=== PATIENT | male | born 1940 | race Caucasian/White ===

== ENCOUNTER 2017-11-28 13:39 | Emergency (ER) | payer OTHER ==
[2017-11-28] MEDS ORDERED: NA CHLORIDE 0.9% 1,000 ML ONE (14:10)
[2017-11-28 14:38] LABS: Absolute Lymphocytes (CBC) 1.7 K/uL (0.7-4.9); Absolute Monocytes 2.1 K/uL (0.1-1.3); Absolute Neutrophil 6.6 K/uL (1.8-8.0); Basophils % 0.4 % (0-1.3); Eosinophils % 0.8 % (0-4.4); Hematocrit 47.3 % (39.6-49.0); MCH 30.8 pg (27.0-35.0); MCV 90.1 fL (80-100); MPV 8.2 fL (7.6-11.3); Monocytes % 20.1 % (3.3-12.3); RBC Red Blood Cell Count 5.25 M/uL (4.33-5.43)
[2017-11-28 14:44] LABS: Potassium 3.8 mEq/L (3.6-5.0)
--- NOTE | 2017-11-28 14:53 | RAD REPORT ---
EXAM DESCRIPTION: RAD - Chest Pa And Lat (2 Views) - 11/28/2017 2:37 pm CLINICAL HISTORY: Cough, chest pain COMPARISON: December 2016 chest film, April 2016 CT chest TECHNIQUE: PA and lateral views of the chest were obtained. FINDINGS: The lungs are clear of a focal consolidation, new mass or acute failure finding. Approxim ately 10-12 millimeter nodule seen in the lateral mid left lung field matches a nodule of similar siz e on the 2016 study. No evidence for growth. This long stability would indicate benign etiology. Yadira ent has chronic interstitial lung disease matching prior imaging. Heart size is normal and central vasculature is within normal limits. No pleural effusion or pneumot horax seen. No acute bony finding noted. No aortic abnormality. IMPRESSION: Chronic fibrotic lung change with no suspicious mass, failure or infiltrate. As detailed above, no suspicious change from prior imaging.
--- NOTE | 2017-11-28 14:55 | RAD REPORT ---
EXAM DESCRIPTION: CT - Head Brain Wo Cont - 11/28/2017 2:43 pm CLINICAL HISTORY: Dizziness, left-sided ear pain and discomfort COMPARISON: None. TECHNIQUE: Axial 5 mm thick images of the head were obtained without IV contrast. All CT scans are performed using dose optimization technique as appropriate and may include automated exposure control or mA/KV adjustment according to patient size. FINDINGS: No intracranial hemorrhage, mass, edema or shift of mid-line structures. No acute cortical based infarction. Moderate atrophy and chronic ischemic changes are present. Ventricular size is in proportion. No abnormal extra-axial fluid collections. Arterial and physiologic calcifications are pr esent. Mastoid air cells and visualized portions of the paranasal sinuses are clear. No acute bony findings. IMPRESSION: Moderate atrophy and chronic ischemic change. No acute intracranial finding.
[2017-11-28 15:28] LABS: Blood Morphology Comment NOT SEEN (NOT SEEN); Platelet Estimate ADEQ; Urine White Blood Cell Casts OK
--- NOTE | 2017-11-28 15:43 | RAD REPORT ---
EXAM DESCRIPTION: CT - Chest For Pe Angio - 11/28/2017 3:29 pm CLINICAL HISTORY: Chest pain, shortness of breath COMPARISON: Chest exam same date, CT study April 2016 TECHNIQUE: Dynamically enhanced 3 mm thick images of the chest were obtained during administration o f approximately 150mL Isovue 370 IV contrast. Coronal and oblique reconstruction images were generate d and reviewed. Exam utilizes a protocol to evaluate the pulmonary arterial tree. All CT scans are performed using dose optimization technique as appropriate and may include automated exposure control or mA/KV adjustment according to patient size. FINDINGS: No pulmonary emboli are identified. Far peripheral branch assessment is limited by motion. The aorta as imaged shows no acute or suspicious finding. No pericardial thickening or effusion. No acute infiltrate or suspicious mass. A 12 mm noncalcified nodule is seen abutting the pleura later al inferior aspect of the left upper lobe (image 35/87). This is unchanged from April 2016. No ple ural effusion or pleural thickening. No mediastinal or hilar suspicious masses. No chest wall masses or abnormal axillary lymphadenopathy. IMPRESSION: No pulmonary embolism identified. Chronic chest findings are detailed above and seen as stable comparing back to April 2016. No other significant or suspicious findings.
[2017-11-28 16:24] LABS: Urine Blood NEGATIVE (NEG); Urine Glucose NEGATIVE (NEG); Urine Protein TRACE (NEG); Urine Specific Gravity 1.015 (1.005-1.030)
--- NOTE | 2017-11-28 16:28 | EDPHYS ---
Physician Documentation [facility] Name: Wendy Phillips Age: 77 yrs Sex: Male : 1940 Arrival Date: 11/28/2017 Time: 13:41 Bed 3 Private MD: Trinidad Yarbrough F ED Physician Guillermo Valencia HPI: 11/28 14:27 This 77 yrs old Male presents to ER via Ambulatory with complaints of rn Dizziness, Pain on Breathing. 14:27 The patient presents with feeling off balance. Onset: The symptoms/episode rn began/occurred 1 week(s) ago. Modifying factors: The symptoms are alleviated by nothing, the symptoms are aggravated by nothing. Severity of symptoms: At their worst the symptoms were mild in the emergency department the symptoms are unchanged. 14:28 The patient has experienced similar episodes in the past. Reports here for 2 reasons, 1 rn week of dizziness, feels off balance, has had this happen before and tends to be wax impaction of ears. No focal neurological complaint. Also reports mild cough with pain in upper chest near neck, no sob worse than baseline COPD. Otherwise feels ok. . Historical: - Allergies: 13:50 No Known Allergies; aj - Home Meds: 13:50 ProAir HFA inhalation [Active]; aj - PMHx: 13:50 COPD; aj - PSHx: 13:50 None; aj - Immunization history:: Adult Immunizations up to date. - Social history:: Smoking status: Patient uses tobacco products, smokes one pack cigarettes per day. - Ebola Screening: : Patient negative for fever greater than or equal to 101.5 degrees Fahrenheit, and additional compatible Ebola Virus Disease symptoms Patient denies exposure to infectious person Patient denies travel to an Ebola-affected area in the 21 days before illness onset No symptoms or risks identified at this time. - Family history:: not pertinent. - Hospitalizations: : No recent hospitalization is reported. ROS: 14:28 Constitutional: Negative for fever, chills, and weight loss, Eyes: Negative for injury, rn pain, redness, and discharge, Cardiovascular: Negative for chest pain, palpitations, and edema, Respiratory: Negative for wheezing Abdomen/GI: Negative for abdominal pain, nausea, vomiting, diarrhea, and constipation, Back: Negative for injury and pain, MS/Extremity: Negative for injury and deformity, Skin: Negative for injury, rash, and discoloration, Neuro: Negative for headache, weakness, numbness, tingling, and seizure. Exam: 14:28 Constitutional: This is a well developed, well nourished patient who is awake, alert, rn and in no acute distress. Head/Face: Normocephalic, atraumatic. Eyes: Pupils equal round and reactive to light, extra-ocular motions intact. Lids and lashes normal. Conjunctiva and sclera are non-icteric and not injected. Cornea within normal limits. Periorbital areas with no swelling, redness, or edema. ENT: Nares patent. No nasal discharge, no septal abnormalities noted.Oropharynx with no redness, swelling, or masses, exudates, or evidence of obstruction, uvula midline. Mucous membranes moist. + bilateral cerumen impaction. Neck: Trachea midline, no thyromegaly or masses palpated, and no cervical lymphadenopathy. Supple, full range of motion without nuchal rigidity, or vertebral point tenderness. No Meningismus. Cardiovascular: tachycardic, irregular, no murmur Respiratory: Lungs have equal breath sounds bilaterally, clear to auscultation and percussion. No rales, rhonchi or wheezes noted. No increased work of breathing, no retractions or nasal flaring. Abdomen/GI: Soft, non-tender, with normal bowel sounds. No distension or tympany. No guarding or rebound. No evidence of tenderness throughout. Skin: Warm, dry, no evidence of cellulitis. MS/ Extremity: Pulses equal, no cyanosis. Neurovascular intact. Full, normal range of motion. Equal circumference. Neuro: Awake and alert, GCS 15, oriented to person, place, time, and situation. Cranial nerves II-XII grossly intact. Motor strength 5/5 in all extremities. Sensory grossly intact. Vital Signs: 13:50 BP 140 / 82; Pulse 107; Resp 16; Temp 98.9; Pulse Ox 95% on R/A; Weight 108.86 kg; aj Height 6 ft. 0 in. (182.88 cm); 15:00 BP 138 / 78; Pulse 88; Resp 15; Pulse Ox 100% on R/A; hb 13:50 Body Mass Index 32.55 (108.86 kg, 182.88 cm) aj MDM: 13:53 Patient medically screened. rn 16:26 Differential diagnosis: generalized weakness, hyperventilation, hypovolemia, idiopathic rn dizziness, vertigo, COPD, pleurisy, mass, PE, pneumonia. Data reviewed: vital signs, nurses notes, lab test result(s), EKG, radiologic studies, CT scan, plain films, and as a result, I will discharge patient. Counseling: I had a detailed discussion with the patient and/or guardian regarding: the historical points, exam findings, and any diagnostic results supporting the discharge/admit diagnosis, lab results, radiology results, the need for outpatient follow up, to return to the emergency department if symptoms worsen or persist or if there are any questions or concerns that arise at home. Response to treatment: the patient's symptoms have mildly improved after treatment, and as a result, I will discharge patient. Special discussion: Based on the patient's history, exam, and Dx evaluation, there is no indication for emergent intervention or inpatient Tx. It is understood by the patient/guardian that if the Sx's persist or worsen they need to return immediately for re-evaluation. I discussed with the patient/guardian in detail that at this point there is no indication for admission to the hospital. It is understood, however, that if the symptoms persist or worsen the patient needs to return immediately for re-evaluation. 16:26 ED course: CT chest neg, labs unremarkable other than d-dimer, ear irrigated and rn cerumen impactions removed.. 11/28 14:04 Order name: CBC with Diff; Complete Time: 15:47 rn 11/28 14:04 Order name: Basic Metabolic Panel; Complete Time: 14:58 rn 11/28 14:04 Order name: Troponin (emerg Dept Use Only); Complete Time: 14:58 rn 11/28 14:04 Order name: D-Dimer; Complete Time: 15:47 rn 11/28 14:04 Order name: Strep; Complete Time: 14:58 rn 11/28 14:44 Order name: CBC Smear Scan; Complete Time: 15:47 EDMS 11/28 14:04 Order name: IV Start; Complete Time: 14:26 rn 11/28 14:04 Order name: XRAY Chest Pa And Lat (2 Views); Complete Time: 14:58 rn 11/28 14:04 Order name: EKG; Complete Time: 14:04 rn 11/28 14:28 Order name: CT Head Brain wo Cont; Complete Time: 14:58 rn 11/28 14:47 Order name: Throat Culture EDAK 11/28 15:07 Order name: CT Chest For PE Angio; Complete Time: 15:47 rn 11/28 16:20 Order name: Urine Dipstick--Ancillary (enter results) em1 11/28 14:04 Order name: EKG - Nurse/Tech; Complete Time: 14:26 rn 11/28 15:55 Order name: Urine Dipstick-Ancillary (obtain specimen); Complete Time: 16:19 rn Administered Medications: 14:26 Drug: NS 0.9% 500 ml Route: IV; Rate: bolus; Site: right antecubital; hb 15:15 Follow up: Response: No adverse reaction; IV Status: Completed infusion hb Disposition: 11/28/17 16:28 Discharged to Home. Impression: Chest pain, unspecified, Impacted cerumen, left ear, Impacted cerumen, right ear. - Condition is Stable. - Discharge Instructions: Cerumen Impaction, Nonspecific Chest Pain, Pleurisy. - Medication Reconciliation Form, Thank You Letter, Antibiotic Education, Prescription Opioid Use form. - Follow up: Trinidad Yarbrough MD; When: As needed; Reason: Recheck today's complaints, Re-evaluation by your physician. - Problem is new. - Symptoms have improved. Signatures: Dispatcher [employer] [facility] Vivian Esquivel RN RN aj Nieto, Roman, MD MD rn Baxter, Heather, RN RN hb Corrections: (The following items were deleted from the chart) 17:07 16:28 11/28/2017 16:28 Discharged to Home. Impression: Chest pain, unspecified; hb Impacted cerumen, left ear; Impacted cerumen, right ear. Condition is Stable. Forms are Medication Reconciliation Form, Thank You Letter, Antibiotic Education, Prescription Opioid Use. Follow up: Trinidad Yarbrough; When: As needed; Reason: Recheck today's complaints, Re-evaluation by your physician. Problem is new. Symptoms have improved. rn
--- NOTE | 2017-11-28 16:28 | ER ---
Nurse's Notes [facility] Name: Wendy Phillips Age: 77 yrs Sex: Male : 1940 Arrival Date: 11/28/2017 Time: 13:41 Bed 3 Private MD: Trinidad Yarbrough F Diagnosis: Chest pain, unspecified;Impacted cerumen, left ear;Impacted cerumen, right ear Presentation: 11/28 13:48 Presenting complaint: Patient states: Woke up this AM with pain to lower anterior neck aj when breathing and left ear discomfort. Patient reports dizziness when moving. Transition of care: patient was not received from another setting of care. Onset of symptoms was November 28, 2017. Risk Assessment: Do you want to hurt yourself or someone else? Patient reports no desire to harm self or others. Care prior to arrival: None. 13:48 Method Of Arrival: Ambulatory aj 13:48 Acuity: DIOGENES 3 aj Triage Assessment: 13:50 General: Appears in no apparent distress. comfortable, Behavior is calm, cooperative, aj appropriate for age. Pain: Complains of pain in right aspect of thyroid, left aspect of thyroid and suprasternal notch. EENT: Reports pain in left ear. Neuro: Level of Consciousness is awake, alert, obeys commands, Oriented to person, place, time, situation, Appropriate for age. Respiratory: Airway is patent Respiratory effort is even, unlabored, Respiratory pattern is regular, symmetrical. Derm: Skin is intact, is healthy with good turgor, Skin is pink, warm \T\ dry. normal. Historical: - Allergies: 13:50 No Known Allergies; aj - Home Meds: 13:50 ProAir HFA inhalation [Active]; aj - PMHx: 13:50 COPD; aj - PSHx: 13:50 None; aj - Immunization history:: Adult Immunizations up to date. - Social history:: Smoking status: Patient uses tobacco products, smokes one pack cigarettes per day. - Ebola Screening: : Patient negative for fever greater than or equal to 101.5 degrees Fahrenheit, and additional compatible Ebola Virus Disease symptoms Patient denies exposure to infectious person Patient denies travel to an Ebola-affected area in the 21 days before illness onset No symptoms or risks identified at this time. - Family history:: not pertinent. - Hospitalizations: : No recent hospitalization is reported. Screenin:26 Abuse screen: Denies threats or abuse. Denies injuries from another. Nutritional hb screening: No deficits noted. Tuberculosis screening: No symptoms or risk factors identified. Fall Risk None identified. Assessment: 14:00 General: Appears in no apparent distress. Behavior is calm, cooperative. Pain: Pain hb currently is 3 out of 10 on a pain scale. Neuro: Level of Consciousness is awake, alert, obeys commands, Oriented to person, place, time, situation. Cardiovascular: Heart tones S1 S2 present Capillary refill < 3 seconds Patient's skin is warm and dry. Respiratory: Airway is patent Trachea midline Respiratory effort is even, unlabored, Respiratory pattern is regular, symmetrical, Breath sounds are clear bilaterally. GI: No signs and/or symptoms were reported involving the gastrointestinal system. : No signs and/or symptoms were reported regarding the genitourinary system. EENT: Reports decreased hearing. Derm: Skin is intact, is healthy with good turgor, Skin is pink, warm \T\ dry. Musculoskeletal: No signs and/or symptoms reported regarding the musculoskeletal system. 15:00 Reassessment: Patient appears in no apparent distress at this time. No changes from hb previously documented assessment. Patient and/or family updated on plan of care and expected duration. Pain level reassessed. Patient is alert, oriented x 3, equal unlabored respirations, skin warm/dry/pink. 16:00 Reassessment: Patient appears in no apparent distress at this time. No changes from hb previously documented assessment. Patient and/or family updated on plan of care and expected duration. Pain level reassessed. Patient is alert, oriented x 3, equal unlabored respirations, skin warm/dry/pink. 16:15 Reassessment: Bilateral ears irrigated with sterile water and H2O2. Pt tolerated well. hb at bedside. VSS. Vital Signs: 13:50 BP 140 / 82; Pulse 107; Resp 16; Temp 98.9; Pulse Ox 95% on R/A; Weight 108.86 kg; aj Height 6 ft. 0 in. (182.88 cm); 15:00 BP 138 / 78; Pulse 88; Resp 15; Pulse Ox 100% on R/A; hb 13:50 Body Mass Index 32.55 (108.86 kg, 182.88 cm) aj ED Course: 13:41 Patient arrived in ED. as 13:42 Trinidad Yarbrough MD is Private Physician. as 13:50 Triage completed. aj 13:50 Arm band placed on left wrist. Patient placed in an exam room. aj 13:53 Guillermo Valencia MD is Attending Physician. rn 14:16 EKG done, by ep tech. reviewed by Guillermo Valencia MD. sm3 14:20 Inserted saline lock: 20 gauge in right antecubital area, using aseptic technique. hb Blood collected. 14:26 Patient has correct armband on for positive identification. Placed in gown. Bed in low hb position. Call light in reach. Side rails up X 1. 14:32 Elena Nassar RN is Primary Nurse. hb 14:36 XRAY Chest Pa And Lat (2 Views) In Process Unspecified. EDMS 14:41 CT completed. Patient tolerated procedure well. Patient moved to CT via wheelchair. vr Patient moved back from CT. 14:43 CT Head Brain wo Cont In Process Unspecified. EDMS 15:[address] nj 15:29 CT completed. Patient tolerated procedure well. Patient moved back from CT. nj 15:29 CT Chest For PE Angio In Process Unspecified. EDMS 16:28 Trinidad Yarbrough MD is Referral Physician. rn 17:06 No provider procedures requiring assistance completed. IV discontinued, intact, hb bleeding controlled, No redness/swelling at site. Pressure dressing applied. Administered Medications: 14:26 Drug: NS 0.9% 500 ml Route: IV; Rate: bolus; Site: right antecubital; hb 15:15 Follow up: Response: No adverse reaction; IV Status: Completed infusion hb Outcome: 16:28 Discharge ordered by . rn 17:06 Discharged to home ambulatory, with significant other. hb 17:06 Condition: stable 17:06 Discharge instructions given to patient, significant other, Instructed on discharge instructions, follow up and referral plans. no driving heavy equipment, Demonstrated understanding of instructions, follow-up care, medications. 17:08 Patient left the ED. hb Signatures: Dispatcher [employer] EDMS Vivian Esquivel RN RN aj Martinez, Amelia as Guillermo Valencia MD MD rn Davis, Victoria vr Baxter, Heather, RN RN hb Jordan, Nathan nj Montes, Shakira [facility]
[2017-11-28 17:32] VITALS: TEMP 98.9
[2017-11-28 17:33] VITALS: BP 138/78; O2SAT 100
--- NOTE | 2017-11-28 22:40 | EKG ---
Test Date: 2017-11-28 Test Time: 14:11:46 Drapery Rod Assembler: JOSELUIS MEASUREMENT RESULTS: Intervals: Rate: 103 DE: 134 QRSD: 126 QT: 362 QTc: 474 [place]: P: 53 DE: 134 QRS: -68 T: 24 INTERPRETIVE STATEMENTS: Sinus tachycardia with premature atrial complexes Right bundle branch block Left anterior fascicular block Bifascicular block Abnormal ECG Compared to ECG 01/16/2017 19:47:29 Atrial premature complex(es) now present Sinus rhythm no longer present Electronically Signed On 11-28-17 22:40:23 CDT by Blanco Barber
== END 2017-11-28 17:07 | disposition home or self-care (01) ==
LOC: ER 13:39
DX: H61.23 Impacted cerumen, bilateral (principal); R07.9 Chest pain, unspecified; J44.9 Chronic obstructive pulmonary disease, unspecified; F17.210 Nicotine dependence, cigarettes, uncomplicated
CPT/HCPCS: 36415; 70450; 71046; 71275; 80048; 81003; 84484; 85025; 85379; 87070; 87081; 93005; J7030; Q9967; 96360; 99284

== ENCOUNTER 2018-11-24 21:23 | Emergency (ER) | payer OTHER ==
[2018-11-24] MEDS ORDERED: ALBUTEROL 2.5 MG/3 ML NEB SOL ONE (22:43)
[2018-11-24] MEDS ORDERED: predniSONE 20 MG TAB ONE (22:44)
[2018-11-24] MEDS ORDERED: IPRATROPIUM BROM 0.5MG/2.5ML ONE (22:44)
[2018-11-24 23:08] LABS: Absolute Lymphocytes (CBC) 2.2 K/uL (0.7-4.9); Absolute Monocytes 1.2 K/uL (0.1-1.3); Absolute Neutrophil 5.9 K/uL (1.8-8.0); Basophils % 0.6 % (0-1.3); Eosinophils % 3.8 % (0-4.4); Hematocrit 50.1 % (39.6-49.0); Lymphocytes % 22.3 % (15.3-44.8); MPV 8.4 fL (7.6-11.3); Monocytes % 12.4 % (3.3-12.3); RBC Red Blood Cell Count 5.46 M/uL (4.33-5.43)
--- NOTE | 2018-11-25 00:31 | ER ---
Nurse's Notes [facility] Name: Wendy Phillips Age: 78 yrs Sex: Male : 1940 Arrival Date: 11/24/2018 Time: 21:29 Bed 30 Private MD: Trinidad Yarbrough F Diagnosis: Chronic obstructive pulmonary disease, unspecified Presentation: 11/24 21:45 Presenting complaint: Patient states: started earlier this week, accompanied by rv cough with whitish phlegm. takes albuterol puff every 4 hours as needed. did not get better. complains of SOB after doing some yard work. patient is diagnosed COPD, and smokes 3/4 packs a day. Transition of care: patient was not received from another setting of care. Onset of symptoms was November 16, 2018 at 08:00. Risk Assessment: Do you want to hurt yourself or someone else? Patient reports no desire to harm self or others. Initial Sepsis Screen: Does the patient meet any 2 criteria? No. Patient's initial sepsis screen is negative. Does the patient have a suspected source of infection? No. Patient's initial sepsis screen is negative. Care prior to arrival: None. 21:45 Method Of Arrival: Ambulatory rv 21:45 Acuity: DIOGENES 3 rv Triage Assessment: 21:49 General: Appears in no apparent distress. comfortable, Behavior is calm, cooperative. rv Pain: Denies pain. EENT: No signs and/or symptoms were reported regarding the EENT system. Neuro: Level of Consciousness is awake. Cardiovascular: Patient's skin is warm and dry. Respiratory: Reports shortness of breath on exertion Airway is patent Breath sounds with wheezes Onset: The symptoms/episode began/occurred EARLIER THIS WEEK, the patient has mild shortness of breath. GI: No signs and/or symptoms were reported involving the gastrointestinal system. : No signs and/or symptoms were reported regarding the genitourinary system. Derm: Skin is intact. Musculoskeletal: No signs and/or symptoms reported regarding the musculoskeletal system. Historical: - Allergies: 21:48 No Known Allergies; rv - Home Meds: 21:48 ProAir HFA inhalation [Active]; rv - PMHx: 21:48 COPD; rv - PSHx: 21:48 None; rv - Immunization history:: Adult Immunizations up to date. - Social history:: Smoking status: Patient uses tobacco products, 3/4 PPD. - Ebola Screening: : No symptoms or risks identified at this time. Screenin:51 Abuse screen: Denies threats or abuse. Denies injuries from another. Nutritional rv screening: No deficits noted. Tuberculosis screening: No symptoms or risk factors identified. Fall Risk None identified. Assessment: 21:51 Respiratory: Respiratory effort is even. rv 21:52 Cardiovascular: Rhythm is regular. rv Vital Signs: 21:44 BP 163 / 93; Pulse 93; Resp 17; Temp 99.5; Pulse Ox 93% on R/A; Weight 113.4 kg; Height rv 6 ft. (182.88 cm); Pain 0/10; 23:00 BP 131 / 86; Pulse 87; Resp 18; Temp 99.5; Pulse Ox 96% ; rv 23:30 BP 119 / 73; Pulse 83; Resp 18; Pulse Ox 95% on R/A; rv 11/25 00:00 BP 133 / 82; Pulse 83; Resp 18; Pulse Ox 95% on R/A; rv 00:30 BP 130 / 84; Pulse 89; Resp 18; Temp 99.4; Pulse Ox 95% on R/A; rv 11/24 21:44 Body Mass Index 33.91 (113.40 kg, 182.88 cm) rv ED Course: 11/24 21:29 Patient arrived in ED. es 21:29 Trinidad Yarbrough MD is Private Physician. es 21:36 Sandro Francois, JUAN M is Primary Nurse. rv 21:47 Triage completed. rv 21:51 Patient has correct armband on for positive identification. Bed in low position. Call rv light in reach. Side rails up X 1. Adult w/ patient. Pulse ox on. NIBP on. 21:51 Arm band placed on right wrist. Patient placed in an exam room, on a stretcher, on rv pulse oximetry, Patient notified of wait time. 22:17 Isac Nevarez NP is PHCP. pm1 22:17 George Warner MD is Attending Physician. pm1 23:00 Inserted saline lock: 20 gauge in right antecubital area, using aseptic technique. rv Blood collected. 23:13 Chest Pa And Lat (2 Views) XRAY In Process Unspecified. EDMS 11/25 00:57 No provider procedures requiring assistance completed. IV discontinued, intact, rv bleeding controlled, No redness/swelling at site. Pressure dressing applied. Administered Medications: 11/24 22:30 Drug: Albuterol 2.5 mg Route: Inhalation; rv 11/25 00:55 Follow up: Response: Marked relief of symptoms rv 11/24 22:30 Drug: AtroVENT Aerosol 0.5 mg Route: Inhalation; rv 11/25 00:55 Follow up: Response: Marked relief of symptoms rv 11/24 22:30 Drug: predniSONE 60 mg Route: PO; rv 11/25 00:55 Follow up: Response: Marked relief of symptoms rv 00:45 Drug: Rocephin 1 grams Route: IV; Rate: calculated rate; Site: right antecubital; rv 00:54 Follow up: IV Status: Completed infusion rv Outcome: 00:31 Discharge ordered by . pm1 00:57 Discharged to home ambulatory. rv 00:57 Condition: good 00:57 Discharge instructions given to patient, Instructed on discharge instructions, follow up and referral plans. medication usage, Demonstrated understanding of instructions, follow-up care, medications, Prescriptions given X 3. 00:57 Patient left the ED. rv Signatures: Dispatcher [employer] Maria Teresa Malave Patrick, NP DAM WORKER pm1 Sandro Francois RN RN rv
--- NOTE | 2018-11-25 00:31 | EDPHYS ---
Physician Documentation [facility] Name: Wendy Phillips Age: 78 yrs Sex: Male : 1940 Arrival Date: 11/24/2018 Time: 21:29 Bed 30 Private MD: Trinidad Yarbrough F ED Physician George Warner HPI: 11/24 22:56 This 78 yrs old Male presents to ER via Ambulatory with complaints of pm1 Breathing Difficulty. 22:56 The patient has shortness of breath at rest. Onset: The symptoms/episode began/occurred pm1 1 week(s) ago. Duration: The symptoms are continuous. The patient's shortness of breath is aggravated by allergies, is alleviated by inhaler. Associated signs and symptoms: Pertinent positives: productive cough, Pertinent negatives: chest pain, fever, nausea, vomiting. Severity of symptoms: in the emergency department the symptoms are worse Pain is currently a 0 / 10. The patient has not experienced similar symptoms in the past. The patient has not recently seen a physician. Historical: - Allergies: 21:48 No Known Allergies; rv - Home Meds: 21:48 ProAir HFA inhalation [Active]; rv - PMHx: 21:48 COPD; rv - PSHx: 21:48 None; rv - Immunization history:: Adult Immunizations up to date. - Social history:: Smoking status: Patient uses tobacco products, 3/4 PPD. - Ebola Screening: : No symptoms or risks identified at this time. ROS: 22:56 Constitutional: Negative for fever, chills, and weight loss, Eyes: Negative for injury, pm1 pain, redness, and discharge, ENT: Negative for injury, pain, and discharge, Neck: Negative for injury, pain, and swelling, Cardiovascular: Negative for chest pain, palpitations, and edema. 22:56 Abdomen/GI: Negative for abdominal pain, nausea, vomiting, diarrhea, and constipation, Back: Negative for injury and pain, : Negative for injury, bleeding, discharge, and swelling, MS/Extremity: Negative for injury and deformity, Skin: Negative for injury, rash, and discoloration, Neuro: Negative for headache, weakness, numbness, tingling, and seizure. 22:56 Respiratory: Positive for cough, baseline sputum color, no change, shortness of breath, at rest. Exam: 22:56 Constitutional: This is a well developed, well nourished patient who is awake, alert, pm1 and in no acute distress. Head/Face: Normocephalic, atraumatic. Eyes: Pupils equal round and reactive to light, extra-ocular motions intact. Lids and lashes normal. Conjunctiva and sclera are non-icteric and not injected. Cornea within normal limits. Periorbital areas with no swelling, redness, or edema. ENT: Nares patent. No nasal discharge, no septal abnormalities noted. Tympanic membranes are normal and external auditory canals are clear. Oropharynx with no redness, swelling, or masses, exudates, or evidence of obstruction, uvula midline. Mucous membranes moist. Neck: Trachea midline, no thyromegaly or masses palpated, and no cervical lymphadenopathy. Supple, full range of motion without nuchal rigidity, or vertebral point tenderness. No Meningismus. Chest/axilla: Normal chest wall appearance and motion. Nontender with no deformity. No lesions are appreciated. Cardiovascular: Regular rate and rhythm with a normal S1 and S2. No gallops, murmurs, or rubs. Normal PMI, no JVD. No pulse deficits. 22:56 Abdomen/GI: Soft, non-tender, with normal bowel sounds. No distension or tympany. No guarding or rebound. No evidence of tenderness throughout. Back: No spinal tenderness. No costovertebral tenderness. Full range of motion. Skin: Warm, dry with normal turgor. Normal color with no rashes, no lesions, and no evidence of cellulitis. MS/ Extremity: Pulses equal, no cyanosis. Neurovascular intact. Full, normal range of motion. 22:56 Respiratory: the patient does not display signs of respiratory distress, Respirations: normal, Breath sounds: wheezing: that is mild, is heard in the left posterior upper lobe. 22:56 Neuro: Orientation: is normal, Motor: is normal, moves all fours. Vital Signs: 21:44 BP 163 / 93; Pulse 93; Resp 17; Temp 99.5; Pulse Ox 93% on R/A; Weight 113.4 kg; Height rv 6 ft. (182.88 cm); Pain 0/10; 23:00 BP 131 / 86; Pulse 87; Resp 18; Temp 99.5; Pulse Ox 96% ; rv 23:30 BP 119 / 73; Pulse 83; Resp 18; Pulse Ox 95% on R/A; rv 0603 00:00 BP 133 / 82; Pulse 83; Resp 18; Pulse Ox 95% on R/A; rv 00:30 BP 130 / 84; Pulse 89; Resp 18; Temp 99.4; Pulse Ox 95% on R/A; rv 11/24 21:44 Body Mass Index 33.91 (113.40 kg, 182.88 cm) rv MDM: 11/24 22:17 Patient medically screened. pm1 11/25 00:30 Data reviewed: vital signs. Data interpreted: Pulse oximetry: on room air is 93 %. pm1 Interpretation: normal. Counseling: I had a detailed discussion with the patient and/or guardian regarding: the historical points, exam findings, and any diagnostic results supporting the discharge/admit diagnosis, lab results, radiology results, the need for outpatient follow up, to return to the emergency department if symptoms worsen or persist or if there are any questions or concerns that arise at home. 11/24 22:24 Order name: Flu pm1 11/24 22:24 Order name: CBC with Diff pm1 11/24 22:24 Order name: BMP pm1 11/24 22:26 Order name: Influenza Screen (A ; Complete Time: 00:23 EDMS 11/24 22:26 Order name: CBC with Automated Diff; Complete Time: 23:10 EDMS 06 22:26 Order name: Basic Metabolic Panel; Complete Time: 23:49 EDMS 11/24 22:24 Order name: Chest Pa And Lat (2 Views) XRAY pm1 Administered Medications: 11/24 22:30 Drug: Albuterol 2.5 mg Route: Inhalation; rv 11/25 00:55 Follow up: Response: Marked relief of symptoms rv 11/24 22:30 Drug: AtroVENT Aerosol 0.5 mg Route: Inhalation; rv 11/25 00:55 Follow up: Response: Marked relief of symptoms rv 11/24 22:30 Drug: predniSONE 60 mg Route: PO; rv 11/25 00:55 Follow up: Response: Marked relief of symptoms rv 00:45 Drug: Rocephin 1 grams Route: IV; Rate: calculated rate; Site: right antecubital; rv 00:54 Follow up: IV Status: Completed infusion rv Disposition: 01:27 Co-signature as Attending Physician, George Warner MD. claire Disposition: 11/25/18 00:31 Discharged to Home. Impression: Chronic obstructive pulmonary disease, unspecified. - Condition is Stable. - Discharge Instructions: Chronic Obstructive Pulmonary Disease, How to Use an Inhaler. - Prescriptions for Zithromax Z- Beni 250 mg Oral Tablet - take 1 tablet by ORAL route as directed for 5 days Day 1 - take two (2) tablets one time. Day 2, 3, 4 , 5 take one (1) tablet once daily.; 6 tablet. Medrol (Beni) 4 mg Oral Tablets, Dose Pack - take 1 tablet by ORAL route as directed - follow package instructions; 1 packet. Guaifenesin AC 10- 100 mg/5 mL Oral Liquid - take 10 milliliter by ORAL route every 4 hours As needed; 240 milliliter. - Medication Reconciliation Form, Thank You Letter, Antibiotic Education, Prescription Opioid Use form. - Follow up: Emergency Department; When: As needed; Reason: Worsening of condition. Follow up: Private Physician; When: 2 - 3 days; Reason: Recheck today's complaints, Continuance of care, Re-evaluation by your physician. - Problem is new. - Symptoms have improved. Signatures: Dispatcher [employer] EDMS George Warner MD MD pkl Isac Nevarez NP HELICOPTER OFFICER pm1 Sandro Francois RN RN rv Corrections: (The following items were deleted from the chart) 00:57 00:31 11/25/2018 00:31 Discharged to Home. Impression: Chronic obstructive pulmonary rv disease, unspecified. Condition is Stable. Forms are Medication Reconciliation Form, Thank You Letter, Antibiotic Education, Prescription Opioid Use. Follow up: Emergency Department; When: As needed; Reason: Worsening of condition. Follow up: Private Physician; When: 2 - 3 days; Reason: Recheck today's complaints, Continuance of care, Re-evaluation by your physician. Problem is new. Symptoms have improved. pm1
[2018-11-25] MEDS ORDERED: CEFTRIAXONE/SWI 1gm 1 GM/10 ML SYR ONE (00:52)
[2018-11-25 02:50] VITALS: O2SAT 95
[2018-11-25 02:52] VITALS: BP 130/84; TEMP 99.4
--- NOTE | 2018-11-25 08:34 | RAD REPORT ---
EXAM DESCRIPTION: RAD - Chest Pa And Lat (2 Views) - 11/24/2018 11:13 pm CLINICAL HISTORY: Cough;SOB Chest pain. COMPARISON: Chest Pa And Lat (2 Views) dated 11/28/2017; Chest Single View dated 01/16/2017; CHEST SING LE VIEW dated 04/08/2014; CHEST SINGLE VIEW dated 04/07/2014; Chest For Pe Angio dated 11/28/2017 TECHNIQUE: PA and lateral views of the chest were obtained. FINDINGS: The lungs are hyperexpanded compatible with COPD. Round nodule in the left mid lung latera lly appears stable over time. The heart is upper limit of normal in size. No fracture or aggressive b karolina process. IMPRESSION: COPD without acute process identified.
== END 2018-11-25 00:57 | disposition home or self-care (01) ==
LOC: ER 21:23
DX: J44.9 Chronic obstructive pulmonary disease, unspecified (principal); Z72.0 Tobacco use
CPT/HCPCS: 85025; 80048; 36415; 87804 ×2; 71046; 96374; 99284; J0696; J7512

== ENCOUNTER 2018-11-25 22:25 | Emergency (ER) | payer OTHER ==
[2018-11-26] MEDS ORDERED: ALBUTEROL 2.5 MG/3 ML NEB SOL ONE (00:12)
[2018-11-26] MEDS ORDERED: IPRATROPIUM BROM 0.5MG/2.5ML ONE (00:12)
--- NOTE | 2018-11-26 01:12 | EDPHYS ---
Physician Documentation [facility] Name: Wendy Phillips Age: 78 yrs Sex: Male : 1940 Arrival Date: 11/25/2018 Time: 22:27 Bed 7 Private MD: Trinidad Yarbrough F ED Physician George Warner HPI: 11/26 01:19 This 78 yrs old Male presents to ER via Wheelchair with complaints of kb Breathing Difficulty. 01:19 The patient has shortness of breath at rest. Onset: The symptoms/episode began/occurred kb 3 day(s) ago. Duration: The symptoms are intermittent. The patient's shortness of breath is aggravated by nothing, is alleviated by nothing. Associated signs and symptoms: The patient has no apparent associated signs or symptoms. Severity of symptoms: At their worst the symptoms were moderate in the emergency department the symptoms are unchanged. The patient has experienced similar episodes in the past. The patient has been recently seen at the [facility] Emergency Department, yesterday, for similar complaints labs were performed, X-rays were performed, was given a prescription for antibiotics. Pt reports he has had shortness of breath for about 3 days. Came in last night and was given a breathing treatment. "I felt better than I have in a long time after that." States he had labs and x-ray done that were all ok. Came tonight because he wasn't getting the same relief with the inhaler so he wants another neb treatment. Reports he thinks part of the feeling of shortness of breath is anxiety. Has seen Jeremy in the past. Was given a "powder inhaler," but didn't think it was necessary so he never started it. Pt smokes cigarettes daily. Educated on disease process of COPD. Historical: - Allergies: 11/25 22:54 No Known Allergies; tl2 - Home Meds: 22:54 ProAir HFA inhalation [Active]; tl2 - PMHx: 22:54 COPD; tl2 - Immunization history:: Adult Immunizations up to date. - Social history:: Smoking status: Patient uses tobacco products, smokes one pack cigarettes per day. - Ebola Screening: : No symptoms or risks identified at this time. ROS: 11/26 01:17 Constitutional: Negative for fever, chills, and weight loss, ENT: Negative for injury, kb pain, and discharge, Neck: Negative for injury, pain, and swelling, Cardiovascular: Negative for chest pain, palpitations, and edema, Abdomen/GI: Negative for abdominal pain, nausea, vomiting, diarrhea, and constipation, Back: Negative for injury and pain, MS/Extremity: Negative for injury and deformity, Skin: Negative for injury, rash, and discoloration, Neuro: Negative for headache, weakness, numbness, tingling, and seizure. Respiratory: Positive for shortness of breath, at rest. Negative for cough, dyspnea on exertion, hemoptysis, orthopnea, pleurisy, sputum production, wheezing. Exam: 01:19 Constitutional: This is a well developed, well nourished patient who is awake, alert, kb and in no acute distress. Head/Face: Normocephalic, atraumatic. Chest/axilla: Normal chest wall appearance and motion. Nontender with no deformity. No lesions are appreciated. Cardiovascular: Regular rate and rhythm with a normal S1 and S2. No gallops, murmurs, or rubs. Normal PMI, no JVD. No pulse deficits. Respiratory: Lungs have equal breath sounds bilaterally, clear to auscultation and percussion. No rales, rhonchi or wheezes noted. No increased work of breathing, no retractions or nasal flaring. Abdomen/GI: Soft, non-tender, with normal bowel sounds. No distension or tympany. No guarding or rebound. No evidence of tenderness throughout. Skin: Warm, dry with normal turgor. Normal color with no rashes, no lesions, and no evidence of cellulitis. MS/ Extremity: Pulses equal, no cyanosis. Neurovascular intact. Full, normal range of motion. Neuro: Awake and alert, GCS 15, oriented to person, place, time, and situation. Cranial nerves II-XII grossly intact. Motor strength 5/5 in all extremities. Sensory grossly intact. Cerebellar exam normal. Normal gait. Vital Signs: 11/25 22:54 BP 144 / 87; Pulse 90; Resp 18; Temp 98(O); Pulse Ox 95% on R/A; Weight 113.4 kg; tl2 Height 6 ft. 0 in. (182.88 cm); Pain 0/10; 11/26 00:40 BP 139 / 78; Pulse 91; Resp 18; Pulse Ox 94% on R/A; tl2 11/25 22:54 Body Mass Index 33.91 (113.40 kg, 182.88 cm) tl2 MDM: 11/25 23:57 Patient medically screened. kb 11/26 01:18 Data reviewed: vital signs, nurses notes. Data interpreted: Pulse oximetry: on room air kb is 96 %. Interpretation: normal. Counseling: I had a detailed discussion with the patient and/or guardian regarding: the historical points, exam findings, and any diagnostic results supporting the discharge/admit diagnosis, the need for outpatient follow up, a family practitioner, a plaster applicator, to return to the emergency department if symptoms worsen or persist or if there are any questions or concerns that arise at home. 01:19 ED course: Pt states he feels so much better after the neb treatment. kb Administered Medications: 00:15 Drug: DuoNeb (3:1) (2.5 mg - 0.5 mg) 3 ml Route: Nebulizer; tl2 01:13 Follow up: Response: No adverse reaction; Marked relief of symptoms mg2 01:26 Follow up: Response: No adverse reaction; Marked relief of symptoms tl2 Disposition: 01:55 Co-signature as Attending Physician, George Warner MD. claire Disposition: 11/26/18 01:11 Discharged to Home. Impression: Chronic obstructive pulmonary disease, unspecified. - Condition is Stable. - Discharge Instructions: Chronic Obstructive Pulmonary Disease. - Prescriptions for Albuterol Sulfate 2.5 mg /3 mL (0.083 %) Inhalation Solution for Nebulization - inhale 1 unit by NEBULIZATION route every 8 hours As needed; 1 box. - Medication Reconciliation Form, Thank You Letter, Antibiotic Education, Prescription Opioid Use form. - Follow up: Emergency Department; When: As needed; Reason: Worsening of condition. Follow up: Private Physician; When: 2 - 3 days; Reason: Recheck today's complaints, Continuance of care, Re-evaluation by your physician. Signatures: Suni Calvert, GIL WAKLER-George Bunn MD MD pkl Kassandra Sweeney RN RN tl2 Binu Grimaldo RN mg2 Corrections: (The following items were deleted from the chart) 01:26 01:11 11/26/2018 01:11 Discharged to Home. Impression: Chronic obstructive pulmonary tl2 disease, unspecified. Condition is Stable. Forms are Medication Reconciliation Form, Thank You Letter, Antibiotic Education, Prescription Opioid Use. Follow up: Emergency Department; When: As needed; Reason: Worsening of condition. Follow up: Private Physician; When: 2 - 3 days; Reason: Recheck today's complaints, Continuance of care, Re-evaluation by your physician. kb
--- NOTE | 2018-11-26 01:12 | ER ---
[facility] Name: Wendy Phillips Age: 78 yrs Sex: Male : 1940 Arrival Date: 11/25/2018 Time: 22:27 Bed 7 Private MD: Trinidad Yarbrough F Diagnosis: Chronic obstructive pulmonary disease, unspecified Presentation: 11/25 22:50 Presenting complaint: Patient states: Was seen here last night, received full workup tl2 and diagnosed with COPD exacerbation and given prescriptions for zithromax, medrol pack and guafenisen. Pt states that breathing treatment helped last night and states that his inhaler is not helping enough and wants another breathing treatment. Pt does not appear in distress and is able to speak in full sentences. Transition of care: patient was not received from another setting of care. Onset of symptoms was November 25, 2018. Risk Assessment: Do you want to hurt yourself or someone else? Patient reports no desire to harm self or others. Initial Sepsis Screen: Does the patient meet any 2 criteria? No. Patient's initial sepsis screen is negative. Does the patient have a suspected source of infection? No. Patient's initial sepsis screen is negative. Care prior to arrival: Medication(s) given: Proair inhaler. 22:50 Method Of Arrival: Wheelchair tl2 22:50 Acuity: DIOGENES 3 tl2 Triage Assessment: 22:54 General: Appears in no apparent distress. comfortable, Behavior is calm, cooperative, tl2 appropriate for age. Pain: Denies pain. Neuro: Level of Consciousness is awake, alert, obeys commands, Oriented to person, place, time, situation. Cardiovascular: Denies chest pain. Respiratory: Reports shortness of breath cough that is Onset: The symptoms/episode began/occurred today, the patient has mild shortness of breath. GI: No signs and/or symptoms were reported involving the gastrointestinal system. : No signs and/or symptoms were reported regarding the genitourinary system. Derm: Skin is pink, warm \T\ dry. Historical: - Allergies: 22:54 No Known Allergies; tl2 - Home Meds: 22:54 ProAir HFA inhalation [Active]; tl2 - PMHx: 22:54 COPD; tl2 - Immunization history:: Adult Immunizations up to date. - Social history:: Smoking status: Patient uses tobacco products, smokes one pack cigarettes per day. - Ebola Screening: : No symptoms or risks identified at this time. Screenin:56 Abuse screen: Denies threats or abuse. Nutritional screening: No deficits noted. tl2 Tuberculosis screening: No symptoms or risk factors identified. Fall Risk None identified. Assessment: 22:54 General: see triage assessment. tl2 11/26 00:15 Reassessment: Patient appears in no apparent distress at this time. Patient and/or tl2 family updated on plan of care and expected duration. Pain level reassessed. Patient is alert, oriented x 3, equal unlabored respirations, skin warm/dry/pink. SUPERVISOR INTERNATIONAL RESERVATIONS at bedside for assessment. Will administer Duoneb. 01:23 Reassessment: Patient appears in no apparent distress at this time. Patient and/or tl2 family updated on plan of care and expected duration. Pain level reassessed. Patient is alert, oriented x 3, equal unlabored respirations, skin warm/dry/pink. pt verbalized understanding of discharge instructions, need for follow up and prescription usage Patient states feeling better. Vital Signs: 11/25 22:54 BP 144 / 87; Pulse 90; Resp 18; Temp 98(O); Pulse Ox 95% on R/A; Weight 113.4 kg; tl2 Height 6 ft. 0 in. (182.88 cm); Pain 0/10; 11/26 00:40 BP 139 / 78; Pulse 91; Resp 18; Pulse Ox 94% on R/A; tl2 11/25 22:54 Body Mass Index 33.91 (113.40 kg, 182.88 cm) tl2 ED Course: 11/25 22:27 Patient arrived in ED. am2 22:27 Trinidad Yarbrough MD is Private Physician. am2 22:53 Triage completed. tl2 22:54 Arm band placed on right wrist. tl2 22:56 Patient has correct armband on for positive identification. Bed in low position. Call tl2 light in reach. Side rails up X 1. Adult w/ patient. 23:57 Sun[facility] Calvert [facility]-C [facility]. kb 23:57 George Warner MD is Attending Physician. kb 11/26 00:39 Kassandra Sweeney, JUAN M is Primary Nurse. tl2 01:23 No provider procedures requiring assistance completed. Patient did not have IV access tl2 during this emergency room visit. Administered Medications: 00:15 Drug: DuoNeb (3:1) (2.5 mg - 0.5 mg) 3 ml Route: Nebulizer; tl2 01:13 Follow up: Response: No adverse reaction; Marked relief of symptoms mg2 01:26 Follow up: Response: No adverse reaction; Marked relief of symptoms tl2 Outcome: 01:11 Discharge ordered by MD. diane 01:23 Discharged to home ambulatory, with family. tl2 01:23 Condition: stable 01:23 Discharge instructions given to patient, family, Instructed on discharge instructions, follow up and referral plans. medication usage, Demonstrated understanding of instructions, follow-up care, medications, Prescriptions given X 2. 01:26 Patient left the ED. tl2 Signatures: Suni Calvert, CUSTOMER CONSULTANT-C CUSTOMER CONSULTANT-Kassandra Prescott RN RN tl2 Vivian Bahena am2 Binu Grimaldo RN RN mg2 Corrections: (The following items were deleted from the chart) 00:22 06/03 22:56 Respiratory: Airway is patent Respiratory effort is even, unlabored, Breath tl2 sounds are clear bilaterally. tl2
[2018-11-26 02:19] VITALS: TEMP 98
[2018-11-26 02:21] VITALS: BP 139/78; O2SAT 94
== END 2018-11-26 01:26 | disposition home or self-care (01) ==
LOC: ER 22:25
DX: J44.9 Chronic obstructive pulmonary disease, unspecified (principal); F17.210 Nicotine dependence, cigarettes, uncomplicated
CPT/HCPCS: 94640; 99284

== ENCOUNTER 2021-02-22 17:50 | Emergency (ER) | payer OTHER ==
[2021-02-22 19:51] LABS: Absolute Lymphocytes (CBC) 0.8 K/uL (0.7-4.9); Basophils % 0.3 % (0-1.3); Hematocrit 47.4 % (39.6-49.0); Lymphocytes % 14.6 % (15.3-44.8); MPV 8.1 fL (7.6-11.3); RBC Red Blood Cell Count 5.24 M/uL (4.33-5.43)
[2021-02-22 19:57] LABS: Protime INR 1.11
[2021-02-22 20:11] LABS: ALT/SGPT 23 U/L (12-78); AST/SGOT 24 U/L (15-37); Albumin 3.7 g/dL (3.4-5.0); Alkaline Phosphatase 77 U/L (45-117); BUN Blood Urea Nitrogen 11 mg/dL (7-18); Bicarbonate 25 mmol/L (21-32); Bilirubin Direct 0.2 mg/dL (0-0.2); Bilirubin Total 0.5 mg/dL (0.2-1.0); Glucose Level 97 mg/dL (74-106); Magnesium 2.1 mg/dL (1.8-2.4); NT PRO-BNP 113 pg/mL (<450); Potassium 3.6 mmol/L (3.5-5.1); Protein, Total 7.7 g/dL (6.4-8.2); Sodium Level 140 mmol/L (136-145); Troponin (Emerg Dept Use Only) < 0.02 ng/mL (0.0-0.045)
--- NOTE | 2021-02-22 20:55 | RAD REPORT ---
EXAM DESCRIPTION: RAD - Chest Single View - 02/22/2021 8:14 pm CLINICAL HISTORY: CONGESTION COMPARISON: Chest Pa And Lat (2 Views) dated 11/24/2018; Chest Pa And Lat (2 Views) dated 11/28/2017; Ch est Single View dated 01/16/2017; CHEST SINGLE VIEW dated 04/08/2014; Chest For Pe Angio dated 8; Ct Low Dose Chest Screening dated 04/27/2016 FINDINGS: No evidence of edema or pneumonia. The heart size is within normal limits.No acute osseous abnormality. No significant pleural effusions or pneumothorax. Rounded nodule in the peripheral aspe ct of the left mid lung is unchanged since 2016 and benign. IMPRESSION: No acute cardiopulmonary disease.
--- NOTE | 2021-02-22 21:03 | RAD REPORT ---
EXAM DESCRIPTION: CT - Chest For Pe Angio - 02/22/2021 8:52 pm CLINICAL HISTORY: shortness of breath COMPARISON: Chest For Pe Angio dated 11/28/2017; Ct Low Dose Chest Screening dated 04/27/2016; THORAX W O CONTRAST dated 01/07/2015; THORAX WO CONTRAST dated 07/14/2014 FINDINGS: Chest Wall: No suspicious thyroid nodules or pathologic lymphadenopathy. Lungs: Limited by respiratory motion. Rounded subpleural nodule in the peripheral aspect of the left upper lobe measures 15 millimeters and is only minimally increased in size since 2016. This nodule is benign. There are some peripheral opacities in the right lower lobe which are nonspecific. Mild para septal emphysema. New 10 millimeter right upper lobe pulmonary nodule. Nodule is partially cavitary. Pleura: No significant effusions or pneumothorax. Mediastinum/thuan: No pathologic lymphadenopathy. Pulmonary arteries/Aorta: Limited evaluation of the segmental and subsegmental pulmonary arteries due to motion. There are some apparent filling defects within a couple of the right upper lobe pulmonary artery stent is favored to represent artifact. No filling defect identified. No aortic aneurysm. Heart: No significant pericardial effusion. Normal heart size. Multi-vessel coronary artery disease. Upper abdomen: No acute abnormality. Bones: No acute abnormality. IMPRESSION: Limited due to motion artifact but no clinically significant pulmonary embolus identifie d. Mild nonspecific right lower lobe ground-glass opacities could represent mild infection, inflammation , or aspiration. 10 millimeter cavitary right upper lobe nodule which is new since 11/28/2017. Recommend six-month fol low-up chest CT.
[2021-02-22] MEDS ORDERED: NA CHLORIDE 0.9% 0 ML ONE (22:39)
[2021-02-22] MEDS ORDERED: METHYLPREDNISOLONE 125 MG INJ ONE (22:40)
[2021-02-22] MEDS ORDERED: AZITHROMYCIN 250 MG TAB ONE (22:40)
[2021-02-22] MEDS ORDERED: NA CHLORIDE 0.9% 500 ML ONE (22:54)
--- NOTE | 2021-02-22 22:55 | EDPHYS ---
Physician Documentation [facility] Name: Wendy Phillips Age: 80 yrs Sex: Male : 1940 Arrival Date: 02/22/2021 Time: 17:53 Bed 12 Private MD: Trinidad Yarbrough F ED Physician Karmen Pacheco HPI: 02/22 22:11 This 80 yrs old Male presents to ER via Wheelchair with complaints of COVID+, ma2 Breathing Difficulty. 22:11 The patient has shortness of breath during heavy activity. Onset: The symptoms/episode ma2 began/occurred gradually, 2 day(s) ago. Associated signs and symptoms: Pertinent negatives: productive cough, fever, loss of consciousness, numbness in extremities. Severity of symptoms: At their worst the symptoms were mild in the emergency department the symptoms are unchanged. The patient has experienced a previous episode. Historical: - Allergies: 18:39 No Known Allergies; jl7 - Home Meds: 18:39 ProAir HFA inhalation [Active]; jl7 - PMHx: 18:39 COPD; jl7 - Immunization history:: Adult Immunizations up to date, Client reports receiving the 2nd dose of the Covid vaccine. - Social history:: Smoking status: Patient denies any tobacco usage or history of. - Family history:: not pertinent. ROS: 22:11 Constitutional: Negative for fever, chills, and weight loss. ma2 22:11 All other systems are negative. Exam: 22:11 Constitutional: This is a well developed, well nourished patient who is awake, alert, ma2 and in no acute distress. Head/Face: Normocephalic, atraumatic. Eyes: Pupils equal round and reactive to light, extra-ocular motions intact. Lids and lashes normal. Conjunctiva and sclera are non-icteric and not injected. Cornea within normal limits. Periorbital areas with no swelling, redness, or edema. ENT: Nares patent. No nasal discharge, no septal abnormalities noted. Tympanic membranes are normal and external auditory canals are clear. Oropharynx with no redness, swelling, or masses, exudates, or evidence of obstruction, uvula midline. Mucous membranes moist. Neck: Trachea midline, no thyromegaly or masses palpated, and no cervical lymphadenopathy. Supple, full range of motion without nuchal rigidity, or vertebral point tenderness. No Meningismus. Chest/axilla: Normal chest wall appearance and motion. Nontender with no deformity. No lesions are appreciated. Cardiovascular: Regular rate and rhythm with a normal S1 and S2. No gallops, murmurs, or rubs. Normal PMI, no JVD. No pulse deficits. Respiratory: Lungs have equal breath sounds bilaterally, clear to auscultation and percussion. No rales, rhonchi or wheezes noted. No increased work of breathing, no retractions or nasal flaring. Abdomen/GI: Soft, non-tender, with normal bowel sounds. No distension or tympany. No guarding or rebound. No evidence of tenderness throughout. MS/ Extremity: Pulses equal, no cyanosis. Neurovascular intact. Full, normal range of motion. Neuro: Awake and alert, GCS 15, oriented to person, place, time, and situation. Cranial nerves II-XII grossly intact. Motor strength 5/5 in all extremities. Sensory grossly intact. Cerebellar exam normal. Normal gait. Vital Signs: 18:35 BP 127 / 78; Pulse 102; Resp 20; Temp 98.5; Pulse Ox 95% on R/A; Weight 110 kg; Height jl7 6 ft. 0 in. (182.88 cm); 21:48 Pulse 86; Pulse Ox 96% on R/A; em 22:42 BP 138 / 71; Pulse 90; Resp 20; Pulse Ox 97% on R/A; vg1 23:21 BP 212 / 82; Pulse 78; Resp 18; Pulse Ox 97% ; vg1 18:35 Body Mass Index 32.89 (110.00 kg, 182.88 cm) jl7 MDM: 21:43 Patient medically screened. ma2 22:11 Differential diagnosis: Anxiety Reaction Bronchitis pneumonia, Pneumothorax Unstable ma2 Angina. Data reviewed: vital signs, nurses notes. Counseling: I had a detailed discussion with the patient and/or guardian regarding: the historical points, exam findings, and any diagnostic results supporting the discharge/admit diagnosis, the presence of at least one elevated blood pressure reading (>120/80) during this emergency department visit, the need for outpatient follow up. 02/22 18:42 Order name: COVID-19 : Document "Date of Symptom Onset" if Symptomatic. jl7 02/22 19:19 Order name: Basic Metabolic Panel; Complete Time: 21:43 [facility] 02/22 19:19 Order name: CBC with Diff; Complete Time: 21:43 [facility] 02/22 19:19 Order name: LFT's; Complete Time: 21:43 [facility] 02/22 19:19 Order name: Magnesium; Complete Time: 21:43 [facility] 02/22 18:45 Order name: CT Chest For PE Angio; Complete Time: 21:43 [facility] 02/22 19:19 Order name: NT PRO-BNP; Complete Time: 21:43 [facility] 02/22 19:19 Order name: PT-INR; Complete Time: 21:43 [facility] 02/22 19:19 Order name: Troponin (emerg Dept Use Only); Complete Time: 21:43 [facility] 02/22 19:19 Order name: XRAY Chest (1 view); Complete Time: 21:43 [facility] 02/22 20:24 Order name: SARS-COV-2 RT PCR; Complete Time: 21:43 [facility] 02/22 19:19 Order name: EKG; Complete Time: 19:20 [facility] 02/22 19:19 Order name: IV Saline Lock; Complete Time: 22:29 [facility] 02/22 19:19 Order name: Labs collected and sent; Complete Time: 22:28 [facility] 02/22 19:19 Order name: O2 Per Protocol; Complete Time: 22:28 [facility] 02/22 19:19 Order name: O2 Sat Monitoring; Complete Time: 22:28 ma2 Administered Medications: 22:30 Drug: AZITHromycin 500 mg Route: PO; vg1 23:21 Follow up: Response: No adverse reaction vg1 22:35 Drug: SOLU-Medrol (methylPrednisoLONE) 125 mg Route: IVP; Site: right wrist; vg1 23:21 Follow up: Response: No adverse reaction vg1 22:35 Drug: NS 0.9% 500 ml Route: IV; Rate: bolus; Site: right wrist; vg1 23:00 Follow up: IV Status: Completed infusion; IV Intake: 500ml vg1 Disposition Summary: 02/22/21 22:55 Discharge Ordered Location: Home ma2 Condition: Stable ma2 Diagnosis - Viral pneumonia, unspecified - covid - 19 ma2 Followup: ma2 - With: Private Physician - When: Tomorrow - Reason: Continuance of care Discharge Instructions: - Discharge Summary Sheet ma2 - COVID-19 ma2 - COVID-19 Frequently Asked Questions ma2 - 10 Things You Can Do to Manage Your COVID-19 Symptoms at Home - [facility] Forms: - Medication Reconciliation Form ma2 - Thank You Letter ma2 - Antibiotic Education ma2 - Prescription Opioid Use ma2 Prescriptions: - Breo Ellipta 200 -25 mcg/dose 100-25 mcg/dose Inhalation blister with device - inhale 1 puff by INHALATION route once daily dose is 200-25 mcg (not 100-25 ma2 mcg); 1 puff; Refills: 0, Product Selection Permitted - Zithromax Z-Beni 250 mg Oral Tablet - take 1 tablet by ORAL route as directed for 5 days Day 1 - take two (2) tablets ma2 one time. Day 2, 3, 4 , 5 take one (1) tablet once daily.; 6 tablet; Refills: 0, Product Selection Permitted - Medrol (Beni) 4 mg Oral Tablets, Dose Pack - take 1 tablet by ORAL route as directed - follow package instructions; 1 ma2 packet; Refills: 0, Product Selection Permitted Signatures: Dispatcher [employer] EDRohit Hills RN RN jl7 Karmen Pacheco MD MD ma2 Lorelei Peralta RN RN vg1 Corrections: (The following items were deleted from the chart) 18:40 18:39 Home Meds: ProAir HFA inhalation; jl7 jl7 19:17 18:43 CORONAVIRUS ordered. EDIA EDMS
--- NOTE | 2021-02-22 22:55 | ER ---
Nurse's Notes [facility] Name: Wendy Phillips Age: 80 yrs Sex: Male : 1940 Arrival Date: 02/22/2021 Time: 17:53 Bed 12 Private MD: Trinidad Yarbrough F Diagnosis: Viral pneumonia, unspecified-covid - 19 Presentation: 02/22 18:35 Chief complaint: Patient states: COVID + on Sunday with home test, reports aches, jl7 fatigue, chills, increased SOB since Sunday. Coronavirus screen: Vaccine status: Patient reports receiving the 2nd dose of the covid vaccine. Date August 28, 2020 Moderna fatigue, shortness of breath, Client presents with at least one sign or symptom that may indicate coronavirus-19. Standard/surgical mask placed on the client. Provider contacted for isolation considerations. Ebola Screen: No symptoms or risks identified at this time. Initial Sepsis Screen: Does the patient meet any 2 criteria? No. Patient's initial sepsis screen is negative. Does the patient have a suspected source of infection? No. Patient's initial sepsis screen is negative. Risk Assessment: Do you want to hurt yourself or someone else? Patient reports no desire to harm self or others. Onset of symptoms was February 16, 2021. 18:35 Method Of Arrival: Wheelchair jl7 18:35 Acuity: DIOGENES 3 jl7 Triage Assessment: 18:39 General: Appears in no apparent distress. uncomfortable, Behavior is calm, cooperative, jl7 appropriate for age. Pain: Denies pain. Neuro: Level of Consciousness is awake, alert, obeys commands, Oriented to person, place, time, situation. Cardiovascular: Patient's skin is warm and dry. Respiratory: Reports shortness of breath at rest Airway is patent Respiratory effort is even, unlabored, Respiratory pattern is regular, symmetrical, Onset: The symptoms/episode began/occurred x 1 week, the patient has mild shortness of breath. Derm: Skin is pink, warm \T\ dry. Historical: - Allergies: 18:39 No Known Allergies; jl7 - Home Meds: 18:39 ProAir HFA inhalation [Active]; jl7 - PMHx: 18:39 COPD; jl7 - Immunization history:: Adult Immunizations up to date, Client reports receiving the 2nd dose of the Covid vaccine. - Social history:: Smoking status: Patient denies any tobacco usage or history of. - Family history:: not pertinent. Screenin:41 Abuse screen: Denies threats or abuse. Nutritional screening: No deficits noted. vg1 Tuberculosis screening: No symptoms or risk factors identified. Fall Risk No fall in past 12 months (0 pts). No secondary diagnosis (0 pts). IV access (20 points). Ambulatory Aid- Crutches/Cane/Walker (15 pts). Gait- Normal/Bed Rest/Wheelchair (0 pts) Mental Status- Oriented to own ability (0 pts). Total Hager Fall Scale indicates Low Risk Score (25-44 pts). Fall prevention measures have been instituted. Side Rails Up X 2 Placed close to Nursing Station. Assessment: 22:40 General: Appears in no apparent distress. comfortable, Behavior is calm, cooperative. vg1 Pain: Denies pain. Neuro: Level of Consciousness is awake, alert, obeys commands, Oriented to person, place, time, situation. Cardiovascular: Patient's skin is warm and dry. Respiratory: Airway is patent Respiratory effort is even, unlabored, Breath sounds are diminished in left posterior lower lobe and right posterior lower lobe. GI: Reports diarrhea, nausea. : No signs and/or symptoms were reported regarding the genitourinary system. EENT: No signs and/or symptoms were reported regarding the EENT system. Derm: Skin is intact, Skin is pink, warm \T\ dry. Musculoskeletal: Circulation, motion, and sensation intact. 23:21 Reassessment: Patient appears in no apparent distress at this time. Patient and/or vg1 family updated on plan of care and expected duration. Pain level reassessed. Patient is alert, oriented x 3, equal unlabored respirations, skin warm/dry/pink. Patient states feeling better. Vital Signs: 18:35 BP 127 / 78; Pulse 102; Resp 20; Temp 98.5; Pulse Ox 95% on R/A; Weight 110 kg; Height jl7 6 ft. 0 in. (182.88 cm); 21:48 Pulse 86; Pulse Ox 96% on R/A; em 22:42 BP 138 / 71; Pulse 90; Resp 20; Pulse Ox 97% on R/A; vg1 23:21 BP 212 / 82; Pulse 78; Resp 18; Pulse Ox 97% ; vg1 18:35 Body Mass Index 32.89 (110.00 kg, 182.88 cm) jl7 ED Course: 17:53 Patient arrived in ED. mr 17:53 Trinidad Yarbrough MD is Private Physician. mr 18:39 Triage completed. jl7 18:39 Arm band placed on right wrist. Patient placed in waiting room, Patient notified of jl7 wait time. 18:53 Inserted saline lock: 20 gauge in right wrist, using aseptic technique. jl7 18:53 COVID swab sent to lab. jl7 20:14 XRAY Chest (1 view) In Process Unspecified. EDMS 20:52 CT Chest For PE Angio In Process Unspecified. EDMS 21:20 Johnson Jennings PA is PHCP. shannan 21:43 Karmen Pacheco MD is Attending Physician. ma2 22:24 Lorelei Peralta, RN is Primary Nurse. vg1 22:42 Patient has correct armband on for positive identification. Bed in low position. Call vg1 light in reach. 22:42 No provider procedures requiring assistance completed. vg1 23:21 IV discontinued, intact, bleeding controlled, No redness/swelling at site. Pressure vg1 dressing applied. Administered Medications: 22:30 Drug: AZITHromycin 500 mg Route: PO; vg1 23:21 Follow up: Response: No adverse reaction vg1 22:35 Drug: SOLU-Medrol (methylPrednisoLONE) 125 mg Route: IVP; Site: right wrist; vg1 23:21 Follow up: Response: No adverse reaction vg1 22:35 Drug: NS 0.9% 500 ml Route: IV; Rate: bolus; Site: right wrist; vg1 23:00 Follow up: IV Status: Completed infusion; IV Intake: 500ml vg1 Intake: 23:00 IV: 500ml; Total: 500ml. vg1 Outcome: 22:55 Discharge ordered by . ma2 23:21 Discharged to home ambulatory. vg1 23:21 Condition: stable 23:21 Discharge instructions given to patient, Instructed on discharge instructions, follow up and referral plans. medication usage, Demonstrated understanding of instructions, follow-up care, medications, Prescriptions given X 3. 23:22 Patient left the ED. vg1 Signatures: Dispatcher [employer] EDMS MickaJohnson malone PA PA jmm Rivera, Mary mr ArevaloCristobal, RN RN em Rohit Tom RN RN jl7 Karmen Pacheco MD MD ma2 Lorelei Peralta RN RN vg1 Corrections: (The following items were deleted from the chart) 18:40 18:39 Home Meds: ProAir HFA inhalation; calvin jl7
[2021-02-22 23:28] VITALS: TEMP 98.5
[2021-02-22 23:31] VITALS: O2SAT 97
[2021-02-22 23:32] VITALS: BP 212/82
== END 2021-02-22 23:22 | disposition home or self-care (01) ==
LOC: ER 17:50
DX: U07.1 COVID-19 (principal); J12.82 Pneumonia due to coronavirus disease 2019; J44.9 Chronic obstructive pulmonary disease, unspecified
CPT/HCPCS: 85025; 80048; 36415; 83735; 85610; 80076; 84484; 83880; 71275; 71045; 96374; 99284; U0003; Q9967; J7040; J2930; J7030

== ENCOUNTER 2021-02-28 16:40 | Emergency (ER) | payer OTHER ==
[2021-02-28 18:39] LABS: Absolute Lymphocytes (CBC) 1.1 K/uL (0.7-4.9); Basophils % 0.2 % (0-1.3); Hematocrit 49.1 % (39.6-49.0); Lymphocytes % 8.7 % (15.3-44.8); MPV 8.1 fL (7.6-11.3); RBC Red Blood Cell Count 5.35 M/uL (4.33-5.43)
[2021-02-28 19:03] LABS: BUN Blood Urea Nitrogen 13 mg/dL (7-18); Bicarbonate 27 mmol/L (21-32); Ferritin 213.5 ng/mL (26-388); Glucose Level 112 mg/dL (74-106); Potassium 4.1 mmol/L (3.5-5.1); Sodium Level 141 mmol/L (136-145); Troponin (Emerg Dept Use Only) < 0.02 ng/mL (0.0-0.045)
--- NOTE | 2021-02-28 19:18 | RAD REPORT ---
EXAM DESCRIPTION: RAD - Chest Single View - 02/28/2021 7:01 pm CLINICAL HISTORY: DYSPNEA Chest pain. COMPARISON: Chest Single View dated 02/22/2021; Chest Pa And Lat (2 Views) dated 11/24/2018; Chest Pa A nd Lat (2 Views) dated 11/28/2017; Chest Single View dated 01/16/2017; Chest For Pe Angio dated 1 FINDINGS: Portable technique limits examination quality. The lungs are emphysematous. Area of nodularity in the lateral left mid lung is unchanged since recen t comparative study. The heart is normal in size. No displaced fractures.
--- NOTE | 2021-02-28 19:52 | ER ---
Nurse's Notes [facility] Name: Wendy Phillips Age: 80 yrs Sex: Male : 1940 Arrival Date: 02/28/2021 Time: 16:41 Bed Waiting Private MD: Trinidad Yarbrough F; Tim Luna K Diagnosis: Coronavirus infection, unspecified Presentation: 02/28 16:53 Chief complaint: Patient states: Came in 6 days ago for SOB. Covid test was positive. ll1 Blood work, x-ray and CT scan done. Sent home with antibiotics and steroids, but cut back on the steroids because he felt he was steroid overloaded. Finished the antibiotics. Came for re-check. Dr. Barriga and Jeremy. Coronavirus screen: Vaccine status: Patient reports receiving the 2nd dose of the covid vaccine. Date August 28, 2020 Client denies travel out of the [place] in the last 14 days. At this time, the client does not indicate any symptoms associated with coronavirus-19. Ebola Screen: Patient denies travel to an Ebola-affected area in the 21 days before illness onset. Initial Sepsis Screen: Does the patient meet any 2 criteria? HR > 90 bpm. No. Patient's initial sepsis screen is negative. Does the patient have a suspected source of infection? Yes: Productive cough/pneumonia. Risk Assessment: Do you want to hurt yourself or someone else? Patient reports no desire to harm self or others. Onset of symptoms was February 23, 2021. 16:53 Method Of Arrival: Ambulatory ll1 16:53 Acuity: DIOGENES 3 ll1 Historical: - Allergies: 16:51 No Known Allergies; ll1 - PMHx: 16:51 COPD; ll1 - Immunization history:: Client reports receiving the 2nd dose of the Covid vaccine, Flu vaccine status is unknown. - Social history:: Smoking status: Patient reports the use of cigarette tobacco products, smokes one-half pack cigarettes per day. Vital Signs: 16:53 BP 147 / 94; Pulse 104; Resp 18; Temp 98.3; Pulse Ox 96% on R/A; Weight 110 kg; Height ll1 6 ft. 0 in. (182.88 cm); Pain 0/10; 20:07 BP 138 / 62; Pulse 83; Resp 20; Pulse Ox 97% on R/A; kg 16:53 Body Mass Index 32.89 (110.00 kg, 182.88 cm) ll1 ED Course: 16:41 Patient arrived in ED. as 16:41 Trinidad Yarbrough MD is Private Physician. as 16:41 Wayne Lnua MD is Private Physician. as 16:41 Tim Luna MD is Private Physician. as 16:51 Arm band placed on. ll1 17:03 Triage completed. ll1 17:06 Suni Calvert FNP-C [facility]. kb 17:06 Kristopher Leija MD is Attending Physician. kb 19:01 CXR XRAY In Process Unspecified. EDMS 20:05 IV discontinued, intact, bleeding controlled, No redness/swelling at site. Pressure tt3 dressing applied. Administered Medications: No medications were administered Outcome: 19:52 Discharge ordered by . kb 20:50 Patient left the ED. kg Signatures: Dispatcher [employer] EDMS Suni Calvert FNP-C FNP-Ckb Martinez, Amelia as Dinorah Francis, RN RN ll1 Heri Dangelo tt3 Karin Dunham RN RN kg
--- NOTE | 2021-02-28 19:52 | EDPHYS ---
Physician Documentation [facility] Name: Wendy Phillips Age: 80 yrs Sex: Male : 1940 Arrival Date: 02/28/2021 Time: 16:41 Bed Waiting Private MD: Trinidad Yarbrough F; Tim Luna K ED Physician Kristopher Leija HPI: 02/28 19:55 This 80 yrs old Male presents to ER via Ambulatory with complaints of kb Breathing Difficulty. 19:55 The patient has shortness of breath with light activity. Onset: The symptoms/episode kb began/occurred last week. Duration: The symptoms are continuous. The patient's shortness of breath is aggravated by exertion, is alleviated by nothing. Associated signs and symptoms: Pertinent positives: non-productive cough. Severity of symptoms: At their worst the symptoms were moderate in the emergency department the symptoms are unchanged. The patient has not experienced similar symptoms in the past. The patient has not recently seen a physician. Pt states he has had covid for a week and isn't getting better. Still has labored breathing. Historical: - Allergies: 16:51 No Known Allergies; ll1 - PMHx: 16:51 COPD; ll1 - Immunization history:: Client reports receiving the 2nd dose of the Covid vaccine, Flu vaccine status is unknown. - Social history:: Smoking status: Patient reports the use of cigarette tobacco products, smokes one-half pack cigarettes per day. ROS: 19:55 Constitutional: Negative for fever, chills, and weight loss. kb 19:55 Respiratory: Positive for shortness of breath, Negative for cough, dyspnea on exertion, hemoptysis, orthopnea, pleurisy, sputum production, wheezing. 19:55 All other systems are negative. Exam: 19:55 Constitutional: This is a well developed, well nourished patient who is awake, alert, kb and in no acute distress. Head/Face: Normocephalic, atraumatic. ENT: Moist Mucous membranes Cardiovascular: Regular rate and rhythm with a normal S1 and S2. No gallops, murmurs, or rubs. No pulse deficits. Respiratory: Respirations even and unlabored. No increased work of breathing, no retractions or nasal flaring. Skin: Warm, dry with normal turgor. Normal color. MS/ Extremity: Pulses equal, no cyanosis. Neurovascular intact. Full, normal range of motion. Neuro: Awake and alert, GCS 15, oriented to person, place, time, and situation. Moves all extremities. Normal gait. Psych: Awake, alert, with orientation to person, place and time. Behavior, mood, and affect are within normal limits. Vital Signs: 16:53 BP 147 / 94; Pulse 104; Resp 18; Temp 98.3; Pulse Ox 96% on R/A; Weight 110 kg; Height ll1 6 ft. 0 in. (182.88 cm); Pain 0/10; 20:07 BP 138 / 62; Pulse 83; Resp 20; Pulse Ox 97% on R/A; kg 16:53 Body Mass Index 32.89 (110.00 kg, 182.88 cm) ll1 MDM: 17:06 Patient medically screened. kb 19:55 Data reviewed: vital signs, nurses notes. Data interpreted: Pulse oximetry: on room air kb is 96 %. Interpretation: normal. Counseling: I had a detailed discussion with the patient and/or guardian regarding: the historical points, exam findings, and any diagnostic results supporting the discharge/admit diagnosis, lab results, radiology results, the need for outpatient follow up, a family practitioner, to return to the emergency department if symptoms worsen or persist or if there are any questions or concerns that arise at home. 02/28 17:08 Order name: BMP; Complete Time: 19:06 02/28 17:08 Order name: C-Reactive Protein; Complete Time: 19:06 02/28 17:08 Order name: CBC with Diff; Complete Time: 18:49 kb 02/28 17:08 Order name: Ferritin; Complete Time: 19:06 02/28 17:08 Order name: Troponin (emerg Dept Use Only); Complete Time: 19:06 kb 02/28 17:08 Order name: CXR XRAY; Complete Time: 19:24 kb 02/28 17:08 Order name: Cardiac monitoring 02/28 17:08 Order name: Droplet/Contact Precautions 02/28 17:08 Order name: EKG - Nurse/Tech 02/28 17:08 Order name: IV Start 02/28 17:08 Order name: Labs collected and sent 02/28 17:08 Order name: O2 Per Protocol 02/28 17:08 Order name: O2 Sat Monitoring 02/28 19:34 Order name: Vital Signs kb Administered Medications: No medications were administered Disposition: 03/01 08:47 Co-signature as Attending Physician, Kristopher Leija MD I agree with the assessment and radha plan of care. Disposition Summary: 02/28/21 19:52 Discharge Ordered Location: Home kb Condition: Stable kb Diagnosis - Coronavirus infection, unspecified kb Followup: kb - With: Emergency Department - When: As needed - Reason: Worsening of condition Followup: kb - With: Private Physician - When: 2 - 3 days - Reason: Recheck today's complaints, Continuance of care, Re-evaluation by your physician Discharge Instructions: - Discharge Summary Sheet kb - Viral Respiratory Infection, [id number] kb - COVID-19 kb - COVID-19 Frequently Asked Questions kb - 10 Things You Can Do to Manage Your COVID-19 Symptoms at Home - [facility] kb Forms: - Medication Reconciliation Form kb - Thank You Letter kb - Antibiotic Education kb - Prescription Opioid Use kb Signatures: Dispatcher [employer] Suni Modi, PRODUCTION LINE MECHANIC-C PRODUCTION LINE MECHANIC-Kristopher Yan MD MD cha Lewis, Lynsay, RN RN ll1
[2021-02-28 20:55] VITALS: TEMP 98.3
[2021-02-28 20:56] VITALS: BP 138/62; O2SAT 97
== END 2021-02-28 20:50 | disposition home or self-care (01) ==
LOC: ER 16:40
DX: U07.1 COVID-19 (principal); J44.9 Chronic obstructive pulmonary disease, unspecified; F17.210 Nicotine dependence, cigarettes, uncomplicated
CPT/HCPCS: 36415; 71045; 80048; 82728; 84484; 85025; 86140; 99282